=== PATIENT | male | born 2000 | race Caucasian/White ===

== ENCOUNTER 2022-04-07 13:33 | Outpatient (CLI) | payer OTHER | END 2022-04-07 13:34 | disposition home or self-care (01) | LOC: SCSRAD 13:33 | PROVIDERS: ATTEND Family Medicine | DX: Z11.1 Encounter for screening for respiratory tuberculosis (principal); R76.11 Nonspecific reaction to tuberculin skin test without active tuberculosis | CPT/HCPCS: 71046 ==